=== PATIENT | male | born 1965 | race Caucasian/White ===

== ENCOUNTER 2024-01-06 16:24 | Emergency (ER) | payer OTHER, SELFPAY ==
[2024-01-06 16:35] VITALS: BP 127/69; PULSE 105; TEMP 36.6; O2SAT 97; BMI 29.8
[2024-01-06] MEDS: LORazepam 0.5 MG TABLET PO (17:03)
--- NOTE | 2024-01-06 17:28 | ED.GENADULT ---
HPI - General Adult General Date Seen: 01/06/24 Chief complaint: Unspecified Complaint, Adult Stated complaint: hands are locking up Time Seen by Provider: 01/06/24 16:34 Source: patient Mode of arrival: ambulatory Limitations: no limitations History of Present Illness HPI narrative: Patient is a 58-year-old male with history of hypertension presenting to the emergency department for an episode where he is unable to bend his left 3rd and 4th fingers in his left hand. States happened around 16:00. For about a minute he states his 2nd 3rd fingers felt heavy and was unable to bend them. He states they were stuck straight. He states he was in his car talking on the phone with his left hand on the steering wheel when he noticed his fingers or not acting right. They are now back to normal his whole thing lasted about 30 seconds to a minute. Denies ever having symptoms like this before. A short time later he knows the scene symptoms on his right 3rd finger but this only lasted a couple seconds he states. His left 3rd and 4th fingers still have a tingling sensation mildly he states over the worse or working back to normal. He is unable to definitively say the sensation he was having in his hands when it started. Did not notice any says doc sensation when trying to bend his fingers images states they felt heavy. No other concerns noted. Denies headache, lightheadedness, dizziness, chest pain, shortness of breath, abdominal pain, diarrhea, constipation. Does states he is feeling very anxious. Related Data Home Medications Medication Instructions Recorded Confirmed Unobtainable 01/06/24 01/06/24 Allergies Allergy/AdvReac Type Severity Reaction Status Date / Time No Known Drug Allergies Allergy Verified 01/06/24 16:34 Review of Systems Status of ROS: Reports: 10 or more systems reviewed and unremarkable except as noted in History and below [facility] Social History Smoking Status: Never smoker Non-prescribed substance use: denies use Exam Narrative: Exam Narrative: Const: Well-nourished, Well-developed, in no distress but is anxious Eyes: PERRL, no conjunctival injection, and symmetrical lids HENT: Atraumatic external nose and ears. Moist mucous membranes. Neck: Symmetric, trachea midline, No thyromegaly. CVS: RRR, No murmurs or gallops. Peripheral pulses 2+ and equal in all extremities RESP: Unlabored respiratory effort. Clear to auscultation bilaterally. GI: Nontender/Nondistended, No rebound or guarding. MSK:Extremities w/o deformity, Normal Active ROM Skin: Warm, Dry. No rashes or lesions. Neuro: Normal Muscle tone, No focal neurological deficits. Psych: Awake, Alert, & Oriented x3. Appropriate mood and affect. Const: Vital Signs, click to edit/add: Vital Signs - 24 hr 01/06/24 16:35 Temperature 97.9 F Pulse Rate [Pulse Oximeter] 105 H Blood Pressure [Ri ght Upper Arm] 127/69 Pulse Oximetry 97 Oxygen Delivery Me thod Room Air Course Vital Signs Vital signs: Initial Vital Signs Temperature 97.9 F 01/06/24 16:35 Temperature Source Temporal Artery Scan 01/06/24 16:35 Pulse Rate 105 H 01/06/24 16:35 Blood Pressure 127/69 01/06/24 16:35 Blood Pressure Mean 88 01/06/24 16:35 Blood Pressure Position Sitting 01/06/24 16:35 Pulse Oximetry 97 01/06/24 16:35 Oxygen Delivery Method Room Air 01/06/24 16:35 Vital Signs Temperature 97.9 F 01/06/24 16:35 Pulse Rate 105 H 01/06/24 16:35 Blood Pressure 127/69 01/06/24 16:35 Pulse Oximetry 97 01/06/24 16:35 Oxygen Delivery Method Room Air 01/06/24 16:35 Temperature 97.9 F 01/06/24 16:35 Pulse Rate 105 H 01/06/24 16:35 Blood Pressure 127/69 01/06/24 16:35 Pulse Oximetry 97 01/06/24 16:35 Oxygen Delivery Method Room Air 01/06/24 16:35 Medications Administered Medications: Discontinued Medications Generic Name Dose Route Start Last Admin Trade Name Freq PRN Reason Stop Dose Admin Lorazepam 0.5 mg 01/06/24 16:57 01/06/24 17:03 Lorazepam 0.5 Mg Tablet PO 01/06/24 16:58 0.5 mg ONCE ONE Administration Medical Decision Making MDM Narrative Medical decision making narrative: Patient is a 58-year-old male who presented to the emergency department for numbness and weakness to his 3rd and 4th digits on left hand in the 3rd digit on his right hand. Symptoms have now resolved. He is feeling very anxious and he was given a dose of Ativan which improved his anxiety greatly he states. His symptoms were bilateral and this seems very unlikely to be stroke related but I will talk to Neurology. I spoke to Dr. Lovelace and she agrees considering the bilateral nature but does think it is reasonable do a CT head along with a CTA head and neck. This was ordered. Patient is agreeable to this plan. Will also order a CBC and BMP the for signs of infection or electrolyte abnormalities. Lab work all returned showing no concerning abnormalities. Imaging all returned showing no signs of strokes or any other intracranial abnormalities. Dr. Lovelace stated that if these were normal he can be discharged home. Patient will be discharged home at this time. He does state he moves now he has a neck issue and is wondering if this could cause some of his symptoms. What could be causing a radiculopathy it would be weird to have the symptoms just in the fingers. Either way patient will be discharged home. Lab Data Labs: Lab Results 01/06/24 Range/Units 18:25 WBC 8.88 (4.50-11.00) K/uL RBC 5.72 (4.30-5.90) m/uL Hgb 17.2 (13.5-17.5) gm/dL Hct 49.9 (37.0-53.0) % MCV 87 (80-100) fL MCH 30 (26-34) pg MCHC 35 (32-36) gm/dL RDW Coeff of Georgette 12.5 (11.5-15.5) % Plt Count 278 (140-440) K/uL Neut % (Auto) 77.8 H (42.0-72.0) % Lymph % (Auto) 10.9 L (20-44) % [place] % (Auto) 9.3 (0.0-11.0) % Eos % (Auto) 1.2 (0.0-7.0) % Baso % (Auto) 0.3 (0.0-3.0) % Neut # (Auto) 6.90 (1.7-7.0) K/uL Lymph # (Auto) 1.00 (0.90-2.90) K/uL [place] # (Auto) 0.80 (0.00-0.90) K/UL Eos # (Auto) 0.11 (0.00-0.50) K/uL Baso # (Auto) 0.03 (0.00-0.30) K/uL Abs Immat Gran (auto) 0.04 (0.00-0.30) K/uL Imm/Tot Granulo (auto) 0.5 % Sodium 138 (135-149) mmol/L Potassium 4.2 (3.6-5.1) mmol/L Chloride 104 (96-114) mmol/L Carbon Dioxide 26 (20-32) mmol/L Anion Gap 8 (7-15) mEq/L BUN 26 (7-30) mg/dL Creatinine 1.0 (0.5-1.5) mg/dL Estimated Creat Clear 88.38 Estimated GFR 87 ml/min Glucose 107 (60-115) mg/dL Calcium 9.6 (8.4-10.6) mg/dL Imaging Data CT scan head: Radiologist's impression: No acute intracranial abnormality. Dictated by Jj Osborne MD @ 01/06/2024 7:24:17 PM Please note that all CT scans at this facility use dose modulation, iterative reconstruction, and/or weight-based dosing when appropriate to reduce radiation dose to as low as reasonably achievable. Dictated by: Jj Osborne MD @ 01/06/2024 19:24:26 CTA head and neck: Radiologist's impression: Preliminary report : CTA head: No evidence of major branch artery occlusion, dissection or aneurysm. Distal vertebral and basilar arteries are patent. . CTA neck: No evidence of significant carotid artery stenosis, occlusion or dissection. Bilateral vertebral arteries are patent. Nodule in the right thyroid lobe can be further evaluated with nonemergent ultrasound if not previously performed. Dictated by Jj Osborne MD @ 01/06/2024 7:29:05 PM Discharge Plan Discharge Clinical Impression: Finger dysfunction Patient Disposition: Home, Self-Care Condition: Stable Instructions: Transient Ischemic Attack (ED) Additional Instructions: I do not believe this is related to his inter cranial issues and does not appear to be stroke related. If he do developed the symptoms again though it is reasonable to come back for re-evaluation. Follow-up with the primary care provider. Return to emergency department for new or worsening symptoms Prescriptions: No Action Unobtainable Follow Up/Referrals: Chikis Ramos MD [Primary Care Provider] - Stand Alone Forms: RxApps Info Instructions
--- NOTE | 2024-01-06 18:10 | CT_ITS ---
Patient: GILLES DONNELLY Facility:?[facility] Patient ID:?[id number] Site Patient ID:?[id number]. Site :?1965 Study:?CT-Neck Angio CTA HEAD AND NECK-01/06/2024 7:10:08 PM Ordering Physician:SARIKA Final Report: DATE: 01/06/2024 CLINICAL HISTORY: Patient with focal neurological deficits. TECHNIQUE: Standard helical CT image acquisition of the neck up to the skull base after bolus intravenous contrast enhancement. 2D and 3D MIP images for post-processing were performed and interpreted on an independent workstation and 3D images were permanently archived. COMPARISON: CT same day. FINDINGS: The origins of the great vessels from the aortic arch are patent. The origin of the right vertebral artery is patent. The origin of the left vertebral artery is patent. The common carotid arteries are patent. There is no stenosis at the origin of the right internal carotid artery. There is no stenosis at the origin of the left internal carotid artery. The rest of the cervical segments of the internal carotid arteries are patent up to the skull base. The right vertebral artery is dominant. The cervical segments of the vertebral arteries are patent up to the skull base. The visualized lung apices are unremarkable. The thyroid gland demonstrates a 1.6cm heterogeneous lesion in its right lobe. The soft tissues of the neck are unremarkable. There are degenerative changes in the cervical spine. IMPRESSION: 1. Patent cervical vasculature. 2. 1.6cm heterogeneous right thyroid lesion. Further evaluation with ultrasound is recommended. Please note that all CT scans at this facility use dose modulation, iterative reconstruction, and/or weight-based dosing when appropriate to reduce radiation dose to as low as reasonably achievable. Dictated by Maribel Caballero MD @ 01/07/2024 12:36:37 PM Signed by:?Maribel Caballero MD @01/07/2024 12:36:37 PM (Electronic Signature)
--- NOTE | 2024-01-06 18:10 | CT_ITS ---
Patient: GILLES DONNELLY Facility:?[facility] Patient ID:?[id number] Site Patient ID:?[id number] Site :?1965 Study:?CT-Head WO-01/06/2024 7:03:14 PM Ordering Physician:SARIKA Final Report: INDICATIONS: Episode of weakness 2nd and 3rd fingers. TECHNIQUE: CT head without contrast. COMPARISON: None FINDINGS: There is no mass effect or midline shift. No hydrocephalus. No CT evidence of acute hemorrhage or infarction. No abnormal extra-axial fluid collection. Bone windows show no acute or suspicious osseous abnormality. Mild paranasal sinus mucosal thickening. Paranasal sinuses and orbits as imaged are otherwise unremarkable. IMPRESSION: No acute intracranial abnormality. Dictated by Jj Osborne MD @ 01/06/2024 7:24:17 PM Please note that all CT scans at this facility use dose modulation, iterative reconstruction, and/or weight-based dosing when appropriate to reduce radiation dose to as low as reasonably achievable. Dictated by: Jj Osborne MD @ 01/06/2024 19:24:26 Signed by:?Jj Osborne MD @01/06/2024 7:24:26 PM (Electronic Signature)
--- NOTE | 2024-01-06 18:10 | CT_ITS ---
Patient: GILLES DONNELLY Facility:?[facility] Patient ID:?[id number] Site Patient ID:?[id number]. Site :?1965 Study:?CT-Head Angio CTA HEAD AND NECK-01/06/2024 7:07:59 PM Ordering Physician:SARIKA Final Report: DATE: 01/06/2024 CLINICAL HISTORY: Patient with focal neurological deficits. TECHNIQUE: Standard helical CT image acquisition through the intracranial circulation following intravenous administration of contrast material with bolus tracking. 2D and 3D MIP images for post-processing were performed and interpreted on an independent workstation and 3D images were permanently archived. COMPARISON: CT same day. FINDINGS: There is no cerebral aneurysm or large vessel occlusion. The right internal carotid artery is normal. The right middle cerebral artery and its branches are normal. The right anterior cerebral artery and its branches are normal. The left internal carotid artery is normal. The left middle cerebral artery and its branches are normal. The left anterior cerebral artery and its branches are normal. The anterior communicating artery is well visualized and appears normal. The right vertebral artery and PICA are normal. The left vertebral artery and PICA are normal. The right vertebral artery is dominant. The basilar artery is patent and appears normal. The right posterior cerebral artery is normal. The left posterior cerebral artery is normal. The visualized venous structures are patent. IMPRESSION: Patent proximal intracranial vasculature without intracranial aneurysms. Please note that all CT scans at this facility use dose modulation, iterative reconstruction, and/or weight-based dosing when appropriate to reduce radiation dose to as low as reasonably achievable. Dictated by Maribel Caballero MD @ 01/07/2024 12:38:53 PM Signed by:?Maribel Caballero MD @01/07/2024 12:38:53 PM (Electronic Signature)
[2024-01-06 18:38] LABS: Basophils Absolute Auto 0.03 K/uL (0.00-0.30); Basophils Percent Auto 0.3 % (0.0-3.0); Eosinophils Absolute Auto 0.11 K/uL (0.00-0.50); Eosinophils Percent Auto 1.2 % (0.0-7.0); Hematocrit 49.9 % (37.0-53.0); Hemoglobin* 17.2 gm/dL (13.5-17.5); Immature Granulocytes Abs Auto 0.04 K/uL (0.00-0.30); Immature Granulocytes Pct Auto 0.5 %; Lymphocytes Percent Auto 10.9 % (20-44); Mean Corpuscular HGB Conc 35 gm/dL (32-36); Mean Corpuscular Hemoglobin 30 pg (26-34); Mean Corpuscular Volume 87 fL (80-100); Monocytes Percent Auto 9.3 % (0.0-11.0); Neutrophils Percent Auto 77.8 % (42.0-72.0); Platelet Count* 278 K/uL (140-440); RDW Coefficient of Variation % 12.5 % (11.5-15.5); Red Blood Count 5.72 m/uL (4.30-5.90); Slide Review Reflex No; White Blood Count* 8.88 K/uL (4.50-11.00)
[2024-01-06 18:50] LABS: Chloride* 104 mmol/L (96-114); Sodium* 138 mmol/L (135-149)
[2024-01-06 18:51] LABS: Potassium* 4.2 mmol/L (3.6-5.1)
[2024-01-06 18:53] LABS: Anion Gap 8 mEq/L (7-15); Blood Urea Nitrogen* 26 mg/dL (7-30); Carbon Dioxide* 26 mmol/L (20-32); Est. Creatinine Clearance* 88.38; Estimated Glomerular Filt Rate 87 ml/min
[2024-01-06 18:54] LABS: Calcium* 9.6 mg/dL (8.4-10.6); Glucose* 107 mg/dL (60-115)
== END 2024-01-06 19:49 | disposition home or self-care (01) ==
PROVIDERS: Emergency Provider Student in an Organized Health Care Education/Training Program; PCP Family Medicine
DX: M25.642 Stiffness of left hand, not elsewhere classified (principal); M25.641 Stiffness of right hand, not elsewhere classified
CPT/HCPCS: 36415; 70450; 70496; 70498; 80048; 85025; 99283; 99284; 99285; A9270; Q9967